=== PATIENT | female | born 1945 | race Caucasian/White ===

== ENCOUNTER → 2017-12-03 | Outpatient (CLI) | payer MEDICARE ==
[2014-08-01 13:39] VITALS: BMI 41.9
[~2017-12-03] MED LIST: ASCO-244 PO; ASPI-1471 PO; ASPI-879 PO; AZA50 PO; AZAT50TA25 PO; AZI250 PO; BEN100 PO; CA C1TAB85 PO; CALC-635 PO; CHOL10005 PO; CLOB59LO4 TP; COPP2TAB PO; DILSR120 PO; DILT240C4 PO; DOXY-179 PO; FISH1CAP15 PO; FLAX100038 PO; FLUT16SP19 NS; FLUT16SP20 NS; FOLI0.4T56 PO; FURO-47 PO; INSU100I30 SQ; INSU100I30 SUBQ; LOSA-54 PO; MAGN250T5 PO; MELO-207 PO; METF-410 PO; MULT-885 PO; MULT1TAB54 PO; NAPR-744 PO; OMEG-36 PO; OMEP-125 PO; OMEP-137 PO; OMEP-153 PO; OXYC-865 PO; OXYGENHOME INH; POTA20TA10 PO; POTA99TA6 PO; PRE5 PO; Prednisone PO; SELE200C PO; SULF-198 PO; TOLT4CAP13 PO; TRA50 PO; Trimethoprim/Sulfamethoxazole PO; VALS1TAB61 PO; VERA180T53 PO; [UNRECOGNIZED DRUG - CODE] PO; [UNRECOGNIZED DRUG - CODE] PO; [UNRECOGNIZED DRUG - CODE] PO
[2017-12-03 14:46] LABS: INR 1.02
[2017-12-03 15:17] LABS: PLATELET COUNT, AUTOMATED 377 K/uL (150-450)
--- NOTE | 2017-12-03 16:10 | RADIOLOGY IMAGING REPORT ---
FACILITY: [facility] - [place] PATIENT NAME: Tereza Otto : 1945 MR: [id number] V: [id number] EXAM DATE: ORDERING PHYSICIAN: SHAWANDA PEREZ TECHNOLOGIST: Location: [facility] - [place] Patient: Tereza Otto : 1945 Visit/Account:[id number] Date of Sevice: 12/03/2017 Abdominal ultrasound Indication: Hepatitis, nonalcoholic fatty liver Comparison: Liver ultrasound report February 22, 2012 Technique: Multiple grayscale, color and Doppler sonographic images were obtained for an ultrasound o f the right upper quadrant. Findings: The liver is enlarged in size measuring 22.7 cm. Overall, there is increased echotexture throughout the hepatic parenchyma. There is normal hepatopedal portal venous flow. No adjacent ascites. Gallbladder wall thickness is 2 mm with no evidence of shadowing stone or sludge within the gallbladd er lumen. Negative sonographic Matias's sign reported by the technologist. Common duct measures 4 mm in maximum diameter with no evidence of shadowing stone. Imaged portions of the pancreas are unremarkable. Abdominal aorta and IVC are patent and unremarkable. The right kidney is normal in size, contour, and echotexture measuring 12.0 cm x 4.4 cm x 5.4 cm. IMPRESSION: 1. Hepatomegaly in the background setting of hepatic steatosis. Report Dictated By: Yemi Mcnair DO at 12/03/2017 4:02 PM Report E-Signed By: Yemi Mcnair DO at 12/03/2017 4:05 PM WSN:[email or web address]
== END ==
LOC: US 00:54
PROVIDERS: ATTEND Nurse Practitioner Family
DX: K76.0 Fatty (change of) liver, not elsewhere classified (principal)
CPT/HCPCS: 36415; 76705; 82040; 82105; 82247; 82310; 82374; 82435; 82565; 82947; 84075; 84132; 84155; 84295; 84450; 84460; 84520; 85025; 85610

== ENCOUNTER → 2017-12-20 | Outpatient (CLI) | payer MEDICARE ==
[2014-08-01 13:39] VITALS: BMI 41.9
[~2017-12-20] MED LIST changes: +IOPAMIDOL 76% 75 ML INFUS BTL 75 ML ONE
--- NOTE | 2017-12-20 16:27 | RADIOLOGY IMAGING REPORT ---
FACILITY: [facility] - [place] PATIENT NAME: Tereza Otto : 1945 MR: [id number] V: [id number] EXAM DATE: ORDERING PHYSICIAN: NANCY OLSON TECHNOLOG[place]: [place] [facility] [place] Tereza [place] : 1945 Visit/Account:[id number] Date of Sevice: 12/20/2017 ABDOMEN/PELVIS WITH CONTRAST HISTORY: Diarrhea, nonalcoholic fatty liver TECHNIQUE: Following administration of IV contrast contiguous axial images acquired through the abdom en/pelvis. Coronal and sagittal reformatting also performed. Dose Lowering Technique One of the following dose optimization techniques was utilized in the performance of this exam: Autom ated exposure control; adjustment of the mA and/or kV according to the patient's size; or use of an i terative reconstruction technique. Specific details can be referenced in the facility's radiology C T exam operational policy. CONTRAST: 75 mL Isovue-370 COMPARISON: July 03, 2017 FINDINGS: Visualized lung bases: Mild dependent changes in lower lung abraham Hepatobiliary: Diffuse hepatic steatosis with a slightly lobular contour. The left lobe appears pro minent Spleen: Negative. Adrenals: Negative. Pancreas: Atrophic Kidneys ureters or bladder: 2 mm nonobstructing calculus lower pole calyx of the right kidney 8 mm no nobstructing calculus lower pole calyx of the left kidney. Subcentimeter hypodensities again seen in both kidneys that are too small to characterize Genitalia: Atrophic appearing uterus GI: There is diverticulosis left-sided colon although no CT evidence of acute diverticulitis Vessels/spaces/nodes: Moderate vascular calcifications throughout the abdomen and pelvis. There are mildly enlarged periportal lymph nodes. These appear slightly less prominent. Radiation Oncology Manager chuckie l lymph node measures 1.5 x 0.9 cm as opposed to 1.8 x 1.2 cm previously Bones/soft tissues: There are extensive spondylotic changes of the lumbar spine and severe degenerat carlos changes the right hip joint. Is moderate joint changes the left hip joint. There is a moderate size umbilical hernia containing fat Additional findings: None pertinent. IMPRESSION: Diffuse hepatic steatosis with a slightly lobular contour suggesting a component of cirrhosis. Atrophic pancreas Nonobstructing calculi in both renal collecting systems Diverticulosis left-sided colon although no CT evidence of acute diverticulitis Mildly enlarged periportal lymph node slightly decreased in size Moderate umbilical hernia containing fat Additional chronic findings as described Report Dictated By: Kaylie Manzo MD at 12/20/2017 4:15 PM Report E-Signed By: Kaylie Manzo MD at 12/20/2017 4:24 PM WSN:[email or web address]
== END ==
LOC: CT 00:55
PROVIDERS: ATTEND Nurse Practitioner Family
DX: K76.0 Fatty (change of) liver, not elsewhere classified (principal); B19.9 Unspecified viral hepatitis without hepatic coma; R91.8 Other nonspecific abnormal finding of lung field; N20.0 Calculus of kidney; N85.8 Other specified noninflammatory disorders of uterus; K57.30 Diverticulosis of large intestine without perforation or abscess without bleeding; I25.10 Atherosclerotic heart disease of native coronary artery without angina pectoris; M47.896 Other spondylosis, lumbar region; K86.89 Other specified diseases of pancreas; M16.11 Unilateral primary osteoarthritis, right hip; R59.0 Localized enlarged lymph nodes; K42.9 Umbilical hernia without obstruction or gangrene
CPT/HCPCS: 74177; Q9967

== ENCOUNTER 2018-01-03 00:28 | Day surgery (SDC) | payer MEDICARE ==
[2014-08-01 13:39] VITALS: Ht 162.6 cm; Wt 115.7 kg
[~2018-01-03] VITALS: Ht 162.6 cm; Wt 115.7 kg
[~2018-01-03 00:28] MED LIST changes: +ASPI-757 PO; -IOPAMIDOL 76% 75 ML INFUS BTL 75 ML ONE; +OXYC-854 PO
[2018-01-03] MEDS ORDERED: PROPOFOL EMUL(*) 10MG/ML 20 ML 20 ML ONE ×2 (11:38→14:55)
[2018-01-03] MEDS ORDERED: NORMOSOL R SOLN(*) 1000 ML BAG 1,000 ML IV PRN (13:45)
[2018-01-03] MEDS ORDERED: LIDOCAINE/SOD BICARB 8.4% SYR ID ONE (13:45)
[2018-01-03 13:59] VITALS: BP 164/82
[2018-01-03 15:10] VITALS: BP 109/60
[2018-01-03 15:32] VITALS: BP 125/80
[2018-01-03 15:33] VITALS: BP 121/91
== END 2018-01-03 15:50 | disposition home or self-care (01) ==
LOC: OR 00:28
PROVIDERS: ATTEND Internal Medicine Gastroenterology
DX: K64.8 Other hemorrhoids (principal); K57.30 Diverticulosis of large intestine without perforation or abscess without bleeding; K62.1 Rectal polyp
CPT/HCPCS: 00811; 36416; 45380; 82948; J2704; 88305

== ENCOUNTER → 2018-06-12 | Outpatient (REF) | payer MEDICARE ==
[2014-08-01 13:39] VITALS: BMI 41.9
[~2018-06-12] MED LIST changes: -METF-410 PO; +METF-450 PO
== END ==
LOC: ZZSENDIN 16:42
PROVIDERS: ATTEND Family Medicine
DX: K75.4 Autoimmune hepatitis (principal)
CPT/HCPCS: 85651

== ENCOUNTER → 2018-07-04 | Outpatient (CLI) | payer MEDICARE ==
[2014-08-01 13:39] VITALS: BMI 41.9
== END ==
LOC: LAB 12:03
PROVIDERS: ATTEND Nurse Practitioner Family
DX: K75.4 Autoimmune hepatitis (principal); K76.0 Fatty (change of) liver, not elsewhere classified; I10 Essential (primary) hypertension
CPT/HCPCS: 36415; 82105; 85610

== ENCOUNTER → 2019-02-12 | Outpatient (REF) | payer MEDICARE ==
[2014-08-01 13:39] VITALS: BMI 41.9
[~2019-02-12] MED LIST changes: -VERA180T53 PO; +VERA180T57 PO
== END ==
LOC: ZZSENDIN 17:04
PROVIDERS: ATTEND Family Medicine
DX: K75.4 Autoimmune hepatitis (principal)
CPT/HCPCS: 85651

== ENCOUNTER → 2019-02-27 | Outpatient (CLI) | payer MEDICARE ==
[2014-08-01 13:39] VITALS: BMI 41.9
[~2019-02-27] MED LIST changes: -OMEP-125 PO; +OMEP-126 PO
--- NOTE | 2019-02-27 16:00 | RADIOLOGY IMAGING REPORT ---
FACILITY: [facility] - [place] PATIENT NAME: Tereza Otto : 1945 MR: [id number] V: [id number] EXAM DATE: ORDERING PHYSICIAN: SHAWANDA PEREZ TECHNOLOGIST: Location: [facility] Patient: Tereza Otto : 1945 Visit/Account:[id number] Date of Sevice: 02/27/2019 Exam type: KNEE 3 VIEW LEFT History: Knee pain Comparison: November 28, 2011. Findings: Three views were submitted. There is moderate narrowing of the medial compartment of the left knee with sclerosis of the adjacent articular surfaces and marginal osteophytes. The appearance is similar to the prior study. No sign ificant narrowing of the lateral compartment is identified. There is mild narrowing the patellofemor al compartment and mild irregularity along the undersurface of the patella likely degenerative. No e vidence of acute fracture-dislocation involving the left knee IMPRESSION: 1. Moderate degenerative changes of the medial compartment and mild generative changes the patellofe moral compartment a left knee appears similar to the prior study Report Dictated By: Kaylie Manzo MD at 02/27/2019 3:53 PM Report E-Signed By: Kaylie Manzo MD at 02/27/2019 3:55 PM WSN:[email or web address]
== END ==
LOC: RAD 14:05
PROVIDERS: ATTEND Family Medicine
DX: M25.562 Pain in left knee (principal)

== ENCOUNTER → 2019-02-27 | Outpatient (CLI) | payer MEDICARE ==
[2014-08-01 13:39] VITALS: BMI 41.9
[2019-02-27 15:14] LABS: INR 1.03
== END ==
LOC: LAB 14:02
PROVIDERS: ATTEND Nurse Practitioner Family
DX: K75.4 Autoimmune hepatitis (principal); K76.0 Fatty (change of) liver, not elsewhere classified
CPT/HCPCS: 36415; 82105; 85610

== ENCOUNTER → 2019-03-05 | Outpatient (CLI) | payer MEDICARE ==
[2014-08-01 13:39] VITALS: BMI 41.9
--- NOTE | 2019-03-05 11:47 | RADIOLOGY IMAGING REPORT ---
FACILITY: [facility] PATIENT NAME: Tereza Otto : 1945 MR: [id number] V: [id number] EXAM DATE: ORDERING PHYSICIAN: NANCY OLSON TECHNOLOGIST: Location: [facility] Patient: Tereza Otto : 1945 Visit/Account:[id number] Date of Sevice: 03/05/2019 EXAMINATION: Ultrasound abdomen right upper quadrant HISTORY: Chronic hepatitis. COMPARISON: Previous right upper quadrant ultrasound report 02/11/2009 is reviewed. Images are unav ailable for comparison. CT of the abdomen and pelvis 12/20/2017 is reviewed. FINDINGS: Gallbladder: Possible trace layering sludge is present, versus artifact. No shadowing stones, wall t hickening, pericholecystic fluid or sonographic Matias sign. The gallbladder wall thickness is normal at 2 mm. Liver: There is diffuse increased hepatic echogenicity with heterogeneous echotexture, compatible wit h fatty infiltration. This may limit assessment for focal liver lesion. Mild surface inflation is a gain demonstrated, suggestive of underlying cirrhosis. Normal hepatopetal flow is present. The liver length is 22.1 cm. Common bile duct: No significant intrahepatic or extrahepatic biliary ductal dilatation is present. T he common bile duct is normal at 5 mm. Pancreas: Normal where visualized. Right kidney: Normal in size and echogenicity, measuring 0.3 cm in length. No hydronephrosis. Simp le right interpolar cyst of 1.4 cm is not significantly changed. Previously identified nonobstructin g right renal calculus by CT is not clearly demonstrated on ultrasound. Upper abdominal aorta and IVC: Patent. Ascites: None. IMPRESSION: 1. Ongoing fatty infiltration of the liver and hepatomegaly. 2. Mild hepatic surface lobulation suggests underlying cirrhosis, unchanged. 3. Possible trace layering gallbladder sludge versus artifact. No sonographic evidence for cholelit hiasis or acute cholecystitis. 4. Benign right renal cyst of 1.4 cm. Report Dictated By: Jadyn Menchaca MD at 03/05/2019 11:34 AM Report E-Signed By: Jadyn Menchaca MD at 03/05/2019 11:41 AM WSN:[email or web address]
== END ==
LOC: US 00:51
PROVIDERS: ATTEND Nurse Practitioner Family
DX: K76.89 Other specified diseases of liver (principal); N28.1 Cyst of kidney, acquired
CPT/HCPCS: 76705